=== PATIENT | male | born 1995 | race Caucasian/White ===

== ENCOUNTER 2022-02-14 06:23 | Emergency (ER) | payer OTHER ==
[~2022-02-14] VITALS: Ht 182.9 cm; Wt 60.0 kg
[2022-02-14] MEDS ORDERED: FAMOTIDINE 20MG/2ML VIAL IV STA (07:21)
[2022-02-14] MEDS ORDERED: MAGNESIUM/ALUMINUM HYDROXIDE/SIMETHICONE 30ML UDC PO STA (07:21)
[2022-02-14] MEDS ORDERED: METOCLOPRAMIDE HCL 10MG/2ML VIAL IV STA (07:21)
[2022-02-14] MEDS ORDERED: ACETAMINOPHEN 325MG TABLET PO ONE (07:30)
[2022-02-14] MEDS ORDERED: VALPROIC ACID 250MG CAPSULE PO ONE (07:30)
[2022-02-14] MEDS ORDERED: SODIUM CHLORIDE 0.9% 1,000 ML IV ONE (07:30)
[2022-02-14 08:48] LABS: BASOPHILS % 0.1 % (0.0-2.0); EOSINOPHILS % 0.5 % (0.0-5.0); HEMATOCRIT. 34.4 % (42.0-52.0); HEMOGLOBIN. 11.7 g/dL (14.0-18.0); MEAN CORPUSCULAR HEMOGLOBIN 34.8 pg (28.0-32.0); MEAN CORPUSCULAR VOLUME 102.6 fL (80.0-94.0); MEAN PLATELET VOLUME 7.6 fl (7.4-10.4); MONOCYTES % 6.8 % (2.0-8.0); NEUTROPHILS % 82.6 % (40.0-76.0); PLATELET 258 x1000/uL (130-400); RED BLOOD CELL COUNT 3.35 mill/uL (4.7-6.1); RED CELL DISTRIBUTION WIDTH 15.5 % (11.6-14.6)
[2022-02-14 08:53] LABS: CHLORIDE 113 mEq/L (98-107)
[2022-02-14 08:57] LABS: ETHANOL BLOOD < 10 mg/dL
[2022-02-14 17:00] VITALS: BP 113/71
[2022-02-14] MEDS ORDERED: VALPROIC ACID 250MG CAPSULE PO SCH (21:00)
== END 2022-02-15 13:14 | disposition home or self-care (01) ==
LOC: ER 06:23
DX: G40.909 Epilepsy, unspecified, not intractable, without status epilepticus (principal); R00.0 Tachycardia, unspecified; S01.512A Laceration without foreign body of oral cavity, initial encounter; R03.0 Elevated blood-pressure reading, without diagnosis of hypertension; X58.XXXA Exposure to other specified factors, initial encounter; Y93.89 Activity, other specified; Y92.89 Other specified places as the place of occurrence of the external cause
CPT/HCPCS: 36415; 80053; 80165; 80320; 85025; 93005; 96361; 96374; 96375; 99285; J2765; J3490; J7030; G0480

== ENCOUNTER 2022-04-29 20:04 | Emergency (ER) | payer OTHER ==
[~2022-04-29] VITALS: Ht 190.5 cm; Wt 69.0 kg
[2022-04-30 00:30] VITALS: BP 100/55
[2022-04-30] MEDS ORDERED: DIVALPROEX SODIUM 250MG ER TABLET PO ONE (00:45)
== END 2022-04-30 01:50 | disposition home or self-care (01) ==
LOC: ER 20:04
DX: G40.909 Epilepsy, unspecified, not intractable, without status epilepticus (principal)
CPT/HCPCS: 99283; Z7610